=== PATIENT | male | born 2000 | race Caucasian/White ===

== ENCOUNTER 2023-10-12 17:11 | Emergency (ER) | payer SELFPAY ==
[~2023-10-12] VITALS: Ht 170.2 cm; Wt 75.0 kg
[2023-10-12 17:14] VITALS: BP 139/82; PULSE 56; RESP 18; TEMP 97.6; O2SAT 100
== END 2023-10-12 19:29 | disposition left against medical advice (07) ==
LOC: ER 17:11
DX: R07.9 Chest pain, unspecified (principal); I10 Essential (primary) hypertension; F19.90 Other psychoactive substance use, unspecified, uncomplicated
CPT/HCPCS: 93005; 99283